=== PATIENT | female | born 1965 | race African-American/Black ===

== ENCOUNTER 2023-06-02 17:34 | Emergency (ER) | payer OTHER ==
[~2023-06-02] VITALS: Ht 154.9 cm; Wt 82.0 kg
[2023-06-02 17:37] VITALS: O2SAT 98
[2023-06-02] MEDS ORDERED: ACETAMINOPHEN 325MG TABLET PO ONE (18:00)
[2023-06-02 22:24] VITALS: BP 128/78; PULSE 90; RESP 18; TEMP 98.4
== END 2023-06-02 22:26 | disposition home or self-care (01) ==
LOC: ER 17:34
DX: S01.01XA Laceration without foreign body of scalp, initial encounter (principal); V89.2XXA Person injured in unspecified motor-vehicle accident, traffic, initial encounter; Y93.89 Activity, other specified; Y92.89 Other specified places as the place of occurrence of the external cause; Y99.8 Other external cause status
CPT/HCPCS: 70450; 12002; 99284; Z7610 ×2